=== PATIENT | female | born 1950 ===

== ENCOUNTER 2018-12-08 18:12 | Outpatient (CLI) | payer MEDICARE, MEDICAID | END 2018-12-08 18:13 | disposition home or self-care (01) | LOC: C.SLEEP 18:13 | DX: G47.33 Obstructive sleep apnea (adult) (pediatric) (principal) ==

== ENCOUNTER 2019-01-04 17:43 | Outpatient (CLI) | payer MEDICARE, MEDICAID | END 2019-01-04 17:44 | disposition home or self-care (01) | LOC: C.SLEEP 17:44 | DX: G47.33 Obstructive sleep apnea (adult) (pediatric) (principal) ==